=== PATIENT | female | born 1985 | race Caucasian/White ===

== ENCOUNTER 2017-07-18 06:03 | Emergency (ER) | payer SELFPAY ==
[2017-07-18 06:15] VITALS: BP 119/87
--- NOTE | 2017-07-18 06:17 | EDM.PDOC ---
ED HPI GENERAL MEDICAL PROBLEM - General Chief Complaint: Back Pain or Injury Stated Complaint: LOWER BACK PAIN Time Seen by Provider: 07/18/17 06:17 Source of Information: Reports: Patient History Limitations: Reports: No Limitations - History of Present Illness INITIAL COMMENTS - FREE TEXT/NARRATIVE: 32-year-old female attends the ED with severe right back and buttock pain on the right side. She states she had some mild pain when she went to bed but it became much worse overnight to the point that she can barely walk this morning. She states she's been going to the chiropractor on a regular basis to have her hips adjusted which brings her pain relief. However today pain is different and worsens ever been before. It is radiating down the back of her posterior right thigh but not below the knee. By history the patient supposedly has rheumatoid arthritis . Apparently her antinuclear antibodies are fairly high which is not uncommon with rheumatoid arthritis it is unlikely that she has lupus as well. She does not take any medication for this problem. Her job is working in a [employer] standing on hard concrete surface throughout the day with a lot of twisting and turning. He has no recollection of any acute injuries or falls. Onset: Today Onset Date: 07/18/17 (Essentially awoke with severe pain and right lower back and buttock area this morning.) Duration: Hour(s): Location: Reports: Back (Right lower back and buttock area rating down the posterior right thigh) Quality: Reports: Ache, Burning, Throbbing Severity: Moderate Improves with: Reports: None, Rest Worsens with: Reports: Movement Context: Denies: Activity, Exercise, Lifting, Sick Contact, Trauma, Other Associated Symptoms: Denies: No Other Symptoms, Confusion, Chest Pain, Cough, cough w sputum, Diaphoresis, Fever/Chills, Headaches, Loss of Appetite, Malaise , Syncope Treatments RESEARCH COMPUTING SPECIALIST: Reports: Other (see below) (None.) Right Lower Back Pain Score (Numeric/FACES): 8 - Related Data Allergies Allergy/AdvReac Type Severity Reaction Status Date / Time cats Allergy Airway Uncoded 07/18/17 06:15 Tightness Home Meds: Home Meds Acetaminophen/oxyCODONE [Percocet 325-5 MG] 1 - 2 each PO Q4H PRN #20 tab [Rx] Meloxicam 15 mg PO DAILY #14 tablet 07/18/17 [Rx] predniSONE [Deltasone] 20 mg PO ASDIRECTED #15 tablet 07/18/17 [Rx] Past Medical History Musculoskeletal History: Reports: Other (See Below), RA Other Musculoskeletal History: lupus Social & Family History - Tobacco Use Smoking Status *Q: Current Every Day Smoker Years of Tobacco use: 10 Packs/Tins Daily: 0.5 - Recreational Drug Use Recreational Drug Use: Yes Drug Use in Last 12 Months: Yes Recreational Drug Type: Reports: Marijuana/Hashish - Living Situation & Occupation Living situation: Reports: Single Occupation: Employed ED ROS GENERAL - Review of Systems Review Of Systems: See Below Constitutional: Denies: Fever, Chills, Malaise, Weakness, Fatigue, Weight Loss HEENT: Reports: No Symptoms Respiratory: Reports: Cough (Smoker's cough.) Cardiovascular: Reports: No Symptoms Endocrine: Reports: No Symptoms GI/Abdominal: Reports: No Symptoms : Reports: No Symptoms Musculoskeletal: Reports: Back Pain Skin: Reports: No Symptoms Neurological: Reports: No Symptoms Psychiatric: Reports: No Symptoms Hematologic/Lymphatic: Reports: No Symptoms ED EXAM,LOWER BACK PAIN/INJURY - Physical Exam Exam: See Below Exam Limited By: No Limitations General Appearance: Alert, WD/WN, Moderate Distress (In obvious pain and discomfort.) Back Exam: Other (Examination of her back shows that she is tall and slender. She does have mite very mild right-sided paraspinal muscle spasm but no well localized tenderness to any of the facet joints. She has severe pain on palpation of the right sacroiliac joint particularly the upper two thirds. There is no pain on the left side.) Extremities: Normal Inspection, Normal Range of Motion, Non-Tender, Other ( Walking with a very definitive limp.) Neurological: Alert, Normal Mood/Affect Course - Vital Signs Last Recorded V/S: Last Vital Signs Temp 36.3 C 07/18/17 06:12 Pulse 78 07/18/17 06:12 Resp 16 07/18/17 06:12 BP 119/87 07/18/17 06:12 Pulse Ox 97 07/18/17 06:12 - Orders/Labs/Meds Meds: Medications Discontinued Medications Generic Name Dose Route Start Last Admin Trade Name Freq PRN Reason Stop Dose Admin Hydromorphone HCl 1 mg 07/18/17 06:33 07/18/17 06:45 Dilaudid IM 07/18/17 06:34 1 mg ONETIME ONE Administration Promethazine HCl 12.5 mg 07/18/17 06:33 07/18/17 06:43 Phenergan IM 07/18/17 06:34 12.5 mg ONETIME ONE Administration - Radiology Interpretation Free Text/Narrative:: 32-year-old female presents to the ED with severe right lower back and buttock pain. She states was present mildly last night before bed but when she woke this morning she can barely walk. On examination she has an acute right sacroiliitis. By history she supposedly has underlying rheumatoid arthritis and/ or lupus. Likely that she has both disease processes. Toward arthritis over rarely would affect fascicular joint however ankylosing spondylitis may be part of the inflammatory process. Treatment was an IM injection of Dilaudid 1 mg with Phenergan 12.5 mg for acute pain relief. Note given to excuse her from the workplace today tomorrow and the next day. She will be prednisone 20 mg with breakfast and supper for 5 days then 1 tablet in the morning only for another 5 days. Meloxicam 15 mg once daily for 12 days to relieve inflammation. Percocet tabs 5/325 one or 2 tablets every 4-6 hours needed for pain relief for the next 2-3 days until the anti-inflammatories become effectual. Try and follow up with her chiropractor if able to get in within the next day or so. Departure - Departure Time of Disposition: 06:34 Disposition: Home, Self-Care 01 Condition: Fair Clinical Impression: Sacroiliitis - Discharge Information Prescriptions: Acetaminophen/oxyCODONE [Percocet 325-5 MG] 1 - 2 each PO Q4H PRN #20 tab PRN Reason: back pain Meloxicam 15 mg PO DAILY #14 tablet predniSONE [Deltasone] 20 mg PO ASDIRECTED #15 tablet Referrals: PCP,None [Primary Care Provider] - Forms: ED Department Discharge, ED Return to Work/School Form Additional Instructions: Evaluation the emergency room this morning in regards to acute onset of severe right lower back pain radiating down the right buttock and posterior thigh. Examination reveals this pain is coming from the right sacroiliac joint and is markedly inflamed. You may have a component of inflammation in this area related to your underlying arthritis/lupus. Treatment in the ED was an injection of pain medication Dilaudid 1 mg with Phenergan 12.5 mg to relieve pain acutely. Treatment at home is to apply ice to the area for one half hour out of every 4 hours today. Ideally chiropractic management manipulation today or tomorrow would be helpful. Suggest use of meloxicam 15 mg once daily to relieve pain and inflammation for the next 412 days. Pain medication Percocet 5/ 325 milligram tablets one or 2 every 4-6 hours needed for pain relief. Deltasone 20 mg with breakfast and supper for 5 days and then 1 tablet in morning only for another 5 days to relieve pain and inflammation in the SI joint. Note given to excuse her from the work place for the next 3 days.
[2017-07-18] MEDS ORDERED: HYDROmorphone 0.5 MG/0.5 ML SYRINGE IM ONE (06:33)
[2017-07-18] MEDS ORDERED: Promethazine 25 MG/ML SDV IM ONE (06:33)
== END 2017-07-18 07:00 | disposition home or self-care (01) ==
LOC: JD.ED 06:03
DX: M46.1 Sacroiliitis, not elsewhere classified (principal); F17.210 Nicotine dependence, cigarettes, uncomplicated; Z91.048 Other nonmedicinal substance allergy status
CPT/HCPCS: 96372; 99283; J1170; J2550

== ENCOUNTER 2025-02-06 22:20 | Emergency (ER) | payer SELFPAY ==
[2025-02-06 22:44] LABS: BASOPHILS ABSOLUTE AUTO 0.0 K/mm3 (0.0-0.2); BASOPHILS PERCENT AUTO 0.3 % (0.0-1.0); EOSINOPHILS ABSOLUTE AUTO 0.0 K/mm3 (0.0-0.4); EOSINOPHILS PERCENT AUTO 0.2 % (0.0-6.0); IMMATURE GRAN ABSOLUTE AUTO 0.14 K/mm3 (0.00-0.05); IMMATURE GRAN PERCENT AUTO 1.1 % (0.0-0.4); LYMPHOCYTES ABSOLUTE AUTO 0.9 K/mm3 (1.0-4.8); LYMPHOCYTES PERCENT AUTO 7.2 % (24.0-44.0); MEAN PLATELET VOLUME 9.7 fl (9.4-12.3); MONOCYTES ABSOLUTE AUTO 1.4 K/mm3 (0.0-0.8); MONOCYTES PERCENT AUTO 10.7 % (0.0-8.0); NEUTROPHILS ABSOLUTE AUTO 10.5 K/mm3 (1.8-7.7); NEUTROPHILS PERCENT AUTO 80.5 % (41.0-71.0); NRBC ABSOLUTE 0.00 (0.00-0.02); NRBC PERCENT 0.0 % (0.0-0.2); PLATELET COUNT,PLT 252 K/mm3 (150-400); RED BLOOD CELL COUNT 4.52 M/mm3 (4.10-5.30); WHITE BLOOD CELL COUNT,WBC 13.05 K/mm3 (3.9-11.3)
[2025-02-06 22:52] LABS: APPEARANCE,URINE SLT CLOUDY (Clear); GLUCOSE,URINE NEGATIVE (Negative); OCCULT BLOOD,URINE 3+ (Negative)
[2025-02-06] MEDS: Ketorolac 60 MG/2 ML SDV IVPUSH STA (22:54)
[2025-02-06 23:04] LABS: SQUAMOUS EPITHELIAL CELLS,UR 0-5 /hpf (0-5)
[2025-02-06 23:09] LABS: A/G RATIO 0.5 (1-2); ALANINE AMINOTRANSFERASE,ALT 22.0 U/L (14-59); ASPARTATE AMNIOTRANSFERASE,AST 19.0 U/L (15-37); BILIRUBIN TOTAL 0.8 mg/dL (0.2-1.0); BLOOD UREA NITROGEN,BUN 13.0 mg/dL (7-18); CARBON DIOXIDE,CO2 30.0 mEq/L (21-32); CHLORIDE,CL 94.0 mEq/L (98-107); CREATINE KINASE,CK 32.0 U/L (26-192); CREATININE 1.3 mg/dL (0.55-1.02); EST CRCL DRUG DOSING (CG) 43.59 mL/min; ESTIMATED GFR 54.0 mL/min (>60); GLUCOSE RANDOM 207.0 mg/dL (70-99); POTASSIUM,K 3.1 mEq/L (3.5-5.1); PROTEIN TOTAL,TP 7.4 g/dl (6.4-8.2); SODIUM,NA 133.0 mEq/L (136-145); TROPONIN I HIGH SENSITIVITY 5.0 pg/mL (<=51)
[2025-02-06 23:09] LABS: BUPRENORPHINE SCREEN,URINE NEGATIVE (CUTOFF=10); METHADONE SCREEN, URINE NEGATIVE (CUTOFF=200); METHAMPHETAMINES SCREEN, URINE PRESUMPTIVE POSITIVE (CUTOFF=500); OXYCODONE SCREEN,URINE NEGATIVE (CUT0FF=100); THC SCREEN,URINE 20 NG/ML PRESUMPTIVE POSITIVE (CUTOFF=50)
[2025-02-06 23:11] LABS: AMPHETAMINES SCREEN, URINE PRESUMPTIVE POSITIVE (CUTOFF=500)
[2025-02-06] MEDS: cefTRIAXone 1 GM in Water For Injection, Sterile 10 ML IVPUSH ONE (23:12)
[2025-02-06] MEDS: Potassium Chloride 20 MEQ Tab.ER PO ONE (23:52)
[2025-02-07 01:03] VITALS: BP 99/64; PULSE 103
== END 2025-02-07 00:50 | disposition home or self-care (01) ==
LOC: JD.ED 22:20
DX: E87.6 Hypokalemia (principal); N39.0 Urinary tract infection, site not specified; E86.9 Volume depletion, unspecified; Z91.048 Other nonmedicinal substance allergy status; Z79.899 Other long term (current) drug therapy
CPT/HCPCS: 36415; 71045; 80053; 80306; 81001; 82550; 83690; 83735; 84484; 84703; 85025; 87086; 87088; 87186; 87428; 93005; 96361; 96365; 96375; 99285; A9270; J0696; J1885; J3480; J7030; 93010; 99284